=== PATIENT | male | born 1945 | race Caucasian/White ===

== ENCOUNTER → 2025-03-22 09:49 | Outpatient (REF) | payer MEDICARE, SELFPAY | LOC: RCS 09:49 | PROVIDERS: ATTENDING PHYSICIAN Internal Medicine Cardiovascular Disease; FAMILY PHYSICIAN Emergency Medicine | DX: I35.1 Nonrheumatic aortic (valve) insufficiency (principal); I25.10 Atherosclerotic heart disease of native coronary artery without angina pectoris; I48.0 Paroxysmal atrial fibrillation | CPT/HCPCS: 93306 ==

== ENCOUNTER 2025-07-06 17:24 | Emergency (ER) | payer MEDICARE, SELFPAY ==
[2025-07-06 17:30] VITALS: BP 178/81
[2025-07-06 19:15] VITALS: BMI 26.3
[2025-07-06 19:17] VITALS: BP 156/81
--- NOTE | 2025-07-06 19:25 | ED.GENMED ---
History of Present Illness
<Aubrey Blanton MD, Resident - Last Filed: 07/06/25 22:15>
General
Chief Complaint: Blood Pressure Problem
Source: patient and significant other
Time Seen by Provider: 07/06/25 18:40
History of Present Illness
History of Present Illness:
Patient is a 79-year-old male with PMH of CAD, IL s/p stenting, secondary heart block s/p pacemaker, HTN, HLD who presents to the [facility] ED for hypertension. Over the last few days, patient has been feeling intermittently dizzy with some head
pressure, which prompted him to take his blood pressure at home today. Blood pressure was approximately 195/85 at home. Patient woke from sleep 2�3 nights ago with racing heart and subsequent dizziness upon standing. Patient has bilateral lower
extremity pitting edema, which the patient's spouse at the bedside believes has gotten worse over the last 6 months. No other symptoms, including chest pain, shortness of breath, palpitations, cough, wheezing, weakness, numbness, vision changes,
dysarthria, headache, abdominal pain, N/V/D, or F/F/C. Patient regularly follows with his PCP and toggle press operator (Dr. Pringle). Patient states he had a recent echocardiogram and carotid imaging, which revealed no new findings. Blood pressure is
normally well-controlled, with his most recent reading approximately 130s/80s a couple weeks ago at his PCP's office. Patient is compliant with his antihypertensive medications. Patient has had recent family stress, with the recent unexpected
of his 's sister.
Past History
<Aubrey Blanton MD, Resident - Last Filed: 07/06/25 22:15>
Past History
ED Past Medical History: Arrthythmia (Heart block), CAD, HTN, Hypercholesterolemia and IL
ED Past Surgical History: Cardiac (Pacemaker, stents) and Urological (Prostatectomy)
Social History
Tobacco: Non-smoker
Alcohol: Occasional
Drug: None
Personal:
Living: with family
Family History
Family History: Negative Diabetes, Hypertension or CAD
Review of Systems
<Aubrey Blanton MD, Resident - Last Filed: 07/06/25 22:15>
Review of Systems
Constitutional: Denies fever, fatigue or chills
Respiratory: Denies cough or trouble breathing
Cardiac: Denies chest pain or palpitations
ABD/GI: Denies abdominal pain, nausea, vomiting or diarrhea
Neurological: Reports dizzy; Denies headache, weakness or numbness
Phy Exam
<Aubrey Blanton MD, Resident - Last Filed: 07/06/25 22:15>
Physical Exam
Physical Exam:
General: NAD. Conversant. Well-appearing.
Neuro: A&O x 3. NFD. Motor, sensory intact in all extremities. No dysmetria or dysdiadochokinesia. Romberg negative. CN II through XII grossly intact. No upper or lower extremity drift. EOMI. Visual yi intact.
CV: RRR. S1, S2 noted. No M/R/G. Bilateral 2+ pitting LE edema. Upper extremity pulses 2+.
Pulm: CTAB. No wheezes or crackles.
GI: Soft, nontender. Nondistended. No masses.
Course
<Aubrey Blanton MD, Resident - Last Filed: 07/06/25 22:15>
Orders/Labs/Results
Orders:
Orders
07/06/25 20:05
Electrocardiogram (*1) Urgent
Reason for Study: Hypertension, Benign
07/06/25 20:20
Complete Blood Count/No Diff Urgent
Comprehensive Metabolic Panel Urgent
07/06/25 20:40
CT Head W/o Iv Contrast Urgent
Comment:
Reason For Exam: dizzy headache xarelto
Abnormal Lab Results
07/06/25
20:20
BUN 22 H mg/dl
(20)
Glucose 117 H mg/dl
(70-99)
07/06/25 20:20
07/06/25 20:20
Vital Signs
Initial and Last Documented VS:
Initial Vital Signs
Temp Pulse Resp BP Pulse Ox
97.8 F 84 18 178/81 99
07/06/25 17:30 07/06/25 17:30 07/06/25 17:30 07/06/25 17:30 07/06/25 17:30
Last Documented Vital Signs
Temp Pulse Resp BP Pulse Ox
97.8 F 70 18 141/74 94
07/06/25 17:30 07/06/25 20:30 07/06/25 20:30 07/06/25 20:00 07/06/25 20:30
Pieterlt;Horace Cifuentes, DO - Last Filed: 07/06/25 20:41>
Orders/Labs/Results
Orders:
Orders
07/06/25 20:05
Electrocardiogram (*1) Urgent
Reason for Study: Hypertension, Benign
07/06/25 20:20
Complete Blood Count/No Diff Urgent
Comprehensive Metabolic Panel Urgent
07/06/25 20:40
CT Head W/o Iv Contrast Urgent
Comment:
Reason For Exam: dizzy headache xarelto
Abnormal Lab Results
07/06/25
20:20
BUN 22 H mg/dl
(05-28)
Glucose 117 H mg/dl
(70-99)
07/06/25 20:20
07/06/25 20:20
Vital Signs
Initial and Last Documented VS:
Initial Vital Signs
Temp Pulse Resp BP Pulse Ox
97.8 F 84 18 178/81 99
07/06/25 17:30 07/06/25 17:30 07/06/25 17:30 07/06/25 17:30 07/06/25 17:30
Last Documented Vital Signs
Temp Pulse Resp BP Pulse Ox
97.8 F 70 18 141/74 94
07/06/25 17:30 07/06/25 20:30 07/06/25 20:30 07/06/25 20:00 07/06/25 20:30
<Aubrey Blanton MD, Resident - Last Filed: 07/06/25 22:15>
MDM/Problems Addressed
Differential Diagnosis Includes:
Hypertensive urgency
Hypertensive emergency
Stroke/TIA
ACS
Aortic dissection
Renal insufficiency
MDM/Problems Addressed:
Assessment: Patient is a 79-year-old male with PMH of IL s/p stenting, second degree heart block s/p pacemaker, HTN, and HLD who presents to the [facility] ED with hypertension (195/85 at home, 178/81 in ED) with 2-3 days of intermittent dizziness,
head pressure, and 1 episode of tachycardia. No additional symptoms. Bilateral 2+ pitting LE edema, otherwise unremarkable physical exam. No neurologic deficits. BP improved to 141/74 without intervention. CBC, CMP unremarkable. CT head shows
no acute intracranial abnormality.
Plan:
#Hypertension
EKG
Labs: CBC, CMP
Imaging: CT head w/o contrast
<Aubrey Blanton MD, Resident - Last Filed: 07/06/25 22:15>
*Pulse Oximetry
SaO2: 99
Oxygen Mode of Delivery: Room air
Patient hypoxic: yes
*Critical Care Note
Total Time (30-74mins, 75-104mins- exclusive of procedures): Not Applicable
ED Attending Note
<Aubrey Blanton MD, Resident - Last Filed: 07/06/25 22:15>
-
Portions of this chart may have been created with voice recognition software.� Occasional wrong word or��sound alike� substitutions may have occurred due to the inherent limitations of voice recognition software.
<Horace Cifuentes DO - Last Filed: 07/06/25 20:41>
ED Attending Note
Patient seen and examined by attending physician: Yes
I performed a history and physical exam of patient and discussed management with resident, I reviewed resident's note and agree with documented findings and plan of care.: Yes
ED Attending Note:
Seen with resident examined independently hypertension on 3 drugs on Xarelto pacemaker presents with an episode palpitations a few days ago dizziness today blood pressure was up with mild headache feels well now, blood pressure normalized will check
labs check CT of the head rule out hemorrhage
Discharge Plan
Departure
Patient Disposition: Home (Routine Discharge)
Date of Disposition: 07/06/25
Time of Disposition: 22:02
Patient with high blood pressure during this ER visit?: Yes
Condition: Good
Covid-19: Not Applicable
Discharge Problem:
Hypertension
Instructions: BLOOD PRESSURE
Prescriptions:
No Action
atorvastatin 40 MG tablet
40 mg PO HS
multivitamin [Daily Multiple] 1 EACH tablet
1 tab PO DAILY
aspirin [Lo-Dose Aspirin] 81 MG tablet,delayed release (DR/EC)
81 mg PO HS
loratadine 10 MG tablet
10 mg PO DAILY
diphenhydramine HCl 25 MG strip
50 mg PO HS PRN (Reason: SLEEP)
metoprolol succinate 50 MG tablet extended release 24 hr
50 mg PO DAILY
losartan 50 MG tablet
100 mg PO DAILY
vitamin B complex 1 TAB tablet
1 tab PO DAILY
Xarelto:
1 tab PO DAILY
Zinc
1 tab PO DAILY
amoxicillin-pot clavulanate 875-125 mg tablet
1 tab PO BID Qty: 20 0RF
Referrals:
Luisito Edmond DO [Family Provider, Family Practice]
Zaira Pringle MD [Active, Cardiology]
Activity Restrictions/Additional Instructions:
Follow-up with PCP and toggle press operator in the outpatient setting
Return to ED with headache, chest pain, shortness of breath, worsening hypertension, weakness, numbness, or any other acute symptoms
Interventions
Interventions:
*Risk Screen - Suicide Last Done: 07/06/25 19:27
*General Assessment Last Done: 07/06/25 19:27
*Neglect/Abuse Screening Last Done: 07/06/25 19:27
*ED COVID-19 Vaccine History Last Done: 07/06/25 19:27
*ED Influenza Vaccine History Last Done: 07/06/25 19:27
ED- Cardiac Assessment Last Done: 07/06/25 19:20
ED- Neurological Assessment Last Done: 07/06/25 19:20
ED- Pulmonary Assessment Last Done: 07/06/25 19:20
Discharge Date and Time
Print Language: ANGOLAN
[2025-07-06 20:00] VITALS: BP 141/74
[2025-07-06 20:30] LABS: Hematocrit 49.4 % (39.0-52.0); Hemoglobin 16.5 g/dL (13.0-18.0); Mean Corp Hgb Conc. 33.4 g/dL (33.0-37.0); Mean Corpuscular Volume 91.8 fL (80.0-94.0); Platelet Count 213 10^3/uL (130-400); Red Cell Dist. Width 13.0 % (11.5-14.5)
[2025-07-06 20:44] LABS: ALT (SGPT) 41 U/L (0-50); AST (SGOT) 32 U/L (17-59); Albumin 4.8 g/dl (3.5-5.0); Alkaline Phosphatase 81 U/L (38-126); Blood Urea Nitrogen 22 mg/dl (9-20); Calcium 9.7 mg/dl (8.4-10.2); Carbon Dioxide 30 mmol/L (22-30); Chloride 102 mmol/L (98-107); Estimated Creatinine Clearance 76 ml/min; Glucose 117 mg/dl (70-99); Potassium 4.7 mmol/L (3.5-5.1); Sodium 140 mmol/L (135-145); Total Protein 7.3 g/dl (6.3-8.2); eGFR > 60.00
[2025-07-06 22:22] VITALS: BP 139/75
== END 2025-07-06 22:29 | disposition home or self-care (01) ==
LOC: EMR 17:24
PROVIDERS: EMERGENCY PHYSICIAN Emergency Medicine; FAMILY PHYSICIAN Family Medicine; REFERRING PHYSICIAN Internal Medicine Cardiovascular Disease
DX: I10 Essential (primary) hypertension (principal); I25.10 Atherosclerotic heart disease of native coronary artery without angina pectoris; I44.1 Atrioventricular block, second degree; E78.00 Pure hypercholesterolemia, unspecified; I25.2 Old myocardial infarction; R60.0 Localized edema; Z79.01 Long term (current) use of anticoagulants; Z79.82 Long term (current) use of aspirin; Z95.5 Presence of coronary angioplasty implant and graft; Z95.0 Presence of cardiac pacemaker; Z63.4 Disappearance and death of family member
CPT/HCPCS: 99284; 70450; 80053; 85027; 93005

== ENCOUNTER 2025-08-30 10:07 | Day surgery (SDC) | payer MEDICARE, SELFPAY ==
[2025-08-30] VITALS (9 sets, daily range): BP systolic 118–172; BP diastolic 58–76; BMI 26.2
--- NOTE | 2025-08-30 13:12 | ITS.CL.PACE ---
Gynecological Assistant - Pacemaker Implant
Pacemaker Implant
Procedure Report:
PACEMAKER GENERATOR CHANGE
Date of Procedure: August 30, 2025
Primary Care Provider: Dr Luisito Edmond
Primary group insurance specialist: Dr Zaira Pringle
PROCEDURES:
1. Removal of dual chamber PPM generator at [facility]
2. Implant of new dual chamber PPM generator
INDICATION FOR PROCEDURE:
1. PPM generator at [facility]
2. 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
The patient was prepped and draped in sterile fashion. Lidocaine with epi was used for local anesthesia. An incision was made along the previous incision and the device and leads were carefully dissected from the pocket. Hemostasis was obtained
with electrocautery. The leads were from the device header and tested using an external analyzer. The pocket was liberally irrigated with antibiotic solution. Once testing (see below) showed adequate and stable function, the leads were
connected to the generator header and the leads and generator were placed within the pocket. The pocket was closed in the typical fashion.
EXPLANTED PPM GENERATOR:
Medtronic
IMPLANTED PPM GENERATOR:
Medtronic [id number], SN [id number] [id number] G
RETAINED LEADS:
Existing RA lead: Medtronic [id number]
Existing RV lead: Medtronic [id number]
DEVICE TESTING:
Sensing: RA 2.5 mV, RV N/A, no escape rhythm
Capture: RA 0.75 V @ 0.4ms, RV 1 V @ 0.4ms
Ohms: RA 475, RV 399
FINAL PROGRAMMING
Lloyd Pacing: DDDR 60-130 ppm
COMPLICATIONS:
None
CONCLUSIONS:
1. Successful explant of dual chamber permanent pacemaker
2. Successful implant of dual chamber permanent pacemaker
RECOMMENDATIONS:
1. In-Office wound check in 7-10 days.
Copy to:
Primary Care Provider: Dr Luisito Edmond
Primary group insurance specialist: Dr Zaira Pringle
== END 2025-08-30 14:45 | disposition home or self-care (01) ==
LOC: CATH 10:07
PROVIDERS: ATTENDING PHYSICIAN Internal Medicine Cardiovascular Disease; FAMILY PHYSICIAN Family Medicine; OTHER PHYSICIAN Internal Medicine Cardiovascular Disease
DX: Z45.010 Encounter for checking and testing of cardiac pacemaker pulse generator [battery] (principal); I44.2 Atrioventricular block, complete; I25.10 Atherosclerotic heart disease of native coronary artery without angina pectoris; R60.0 Localized edema; I35.1 Nonrheumatic aortic (valve) insufficiency; I10 Essential (primary) hypertension; I48.0 Paroxysmal atrial fibrillation; E78.5 Hyperlipidemia, unspecified; Z79.01 Long term (current) use of anticoagulants; Z79.899 Other long term (current) drug therapy
CPT/HCPCS: 33228; C1785